=== PATIENT | male | born 1985 | race Caucasian/White ===

== ENCOUNTER 2018-11-08 11:05 | Emergency (ER) | payer SELFPAY ==
[2018-11-08] MEDS ORDERED: IBUPROFEN 800 MG TABLET PO ONE (11:28)
--- NOTE | 2018-11-08 11:28 | ER Document Report ---
ED Medical Screen (RME) - General Chief Complaint: General Weakness Stated Complaint: WEAKNESS Time Seen by Provider: 11/08/18 11:20 Mode of Arrival: Ambulatory Notes: This 33-year-old male presents to the emergency department with complaints he is been out of it for the past 4 to 5 days. Reports his urine is dark. Reports history of right upper quad abdominal pain right lower quad abdominal pain. Reports his muscles are sore as his lymph nodes are swollen. Reports he had diarrhea yesterday twice. Reports he quit taking kratom 2 days ago. He was taking that because he had anxiety and history of opiate abuse. 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 Reports he was take care of kids with [id number]-[id number]-scb-mouth disease. Patient did not have any abdominal pain with palpation. Patient reports he has been drinking fluids but his mouth looks dry. Denies chest pain denies shortness of breath. I have greeted and performed a rapid initial assessment of this patient. A comprehensive ED assessment and evaluation of the patient, analysis of test results and completion of the medical decision making process will be conducted by additional ED providers. Dictation of this chart was performed using voice recognition software; therefore, there may be some unintended grammatical errors. TRAVEL OUTSIDE OF THE [place] IN LAST 30 DAYS: No - Related Data Allergies/Adverse Reactions: No Known Allergies Allergy (Verified 11/08/18 11:06) Past Medical History Renal/ Medical History: Reports: Hx Kidney Stones Past Surgical History: Reports: Hx Kidney (Renal Surgery) - Immunizations Hx Diphtheria, Pertussis, Tetanus Vaccination: Yes Physical Exam - Vital signs Vitals: Temp Pulse Resp BP Pulse Ox 98.6 F 137 H 18 130/95 H 99 11/08/18 11:09 11/08/18 11:09 11/08/18 11:09 11/08/18 11:09 11/08/18 11:09 Course - Vital Signs Vital signs: Temp Pulse Resp BP Pulse Ox 98.6 F 137 H 18 130/95 H 99 11/08/18 11:09 11/08/18 11:09 11/08/18 11:09 11/08/18 11:09 11/08/18 11:09
[2018-11-08 11:49] LABS: ABSOLUTE EOSINOPHILS # (AUTO) 0.1 10^3/uL (0.0-0.6); ABSOLUTE LYMPHOCYTES (AUTO) 2.2 10^3/uL (0.5-4.7); ABSOLUTE MONOCYTES (AUTO) 0.7 10^3/uL (0.1-1.4); ABSOLUTE NEUT (AUTO) 5.1 10^3/uL (1.7-8.2); APPEARANCE,URINE SLIGHTLY-CLOUDY; BASOPHILS % (AUTO) 0.5 % (0-2); BILIRUBIN,URINE NEGATIVE (NEGATIVE); COLOR,URINE STRAW; EOSINOPHILS % (AUTO) 1.3 % (0-6); GLUCOSE, URINE NEGATIVE (NEGATIVE); HEMATOCRIT 41.4 % (37.9-51.0); HEMOGLOBIN 14.6 g/dL (13.5-17.0); KETONES,URINE NEGATIVE (NEGATIVE); LEUKOCYTE ESTERASE,URINE NEGATIVE (NEGATIVE); LYMPHOCYTES % (AUTO) 26.6 % (13-45); MEAN CORPUSCULAR HEMOGLOBIN 31.8 pg (27.0-33.4); MEAN CORPUSCULAR HGB CONC 35.2 g/dL (32.0-36.0); MEAN CORPUSCULAR VOLUME 90 fl (80-97); NITRITE,URINE NEGATIVE (NEGATIVE); PLATELET COUNT 213 10^3/uL (150-450); PROTEIN,URINE NEGATIVE (NEGATIVE); RED BLOOD COUNT 4.58 10^6/uL (4.35-5.55); RED CELL DISTRIBUTION WIDTH 12.9 % (11.5-14.0); SEGMENTED NEUTROPHILS % (AUTO) 62.6 % (42-78); TOTAL CELLS COUNTED % (AUTO) 100 %; URINE SPECIFIC GRAVITY 1.002; UROBILINOGEN,URINE NEGATIVE mg/dL (<2.0); WHITE BLOOD COUNT 8.2 10^3/uL (4.0-10.5)
[2018-11-08 12:10] LABS: ALBUMIN 5.1 g/dL (3.5-5.0); ALKALINE PHOSPHATASE 89 U/L (38-126); ANION GAP 11 (5-19); ASPARTATE AMINO TRANSFERASE 17 U/L (17-59); BILIRUBIN,DIRECT 0.2 mg/dL (0.0-0.4); BILIRUBIN,TOTAL 0.5 mg/dL (0.2-1.3); BLOOD UREA NITROGEN 6 mg/dL (7-20); CALCIUM 10.4 mg/dL (8.4-10.2); CARBON DIOXIDE 30 mmol/L (22-30); CHLORIDE 100 mmol/L (98-107); GLUCOSE 105 mg/dL (75-110); POTASSIUM 4.1 mmol/L (3.6-5.0); TOTAL PROTEIN 8.4 g/dL (6.3-8.2)
[2018-11-08 12:19] LABS: URINE AMPHETAMINES SCREEN NEGATIVE; URINE BARBITURATES SCREEN NEGATIVE; URINE BENZODIAZEPINES SCREEN NEGATIVE; URINE COCAINE SCREEN NEGATIVE; URINE MARIJUANA (THC) SCREEN NEGATIVE; URINE METHADONE SCREEN NEGATIVE; URINE PHENCYCLIDINE SCREEN NEGATIVE
--- NOTE | 2018-11-08 14:46 | ER Document Report ---
ED General - General Chief Complaint: General Weakness Stated Complaint: WEAKNESS Time Seen by Provider: 11/08/18 11:20 Mode of Arrival: Ambulatory Notes: Overall healthy 33-year-old male presents to the emergency department with chief complaint of general malaise, body aches, and concern that he may have liver injury secondary to kratom use. Patient states that he has significant social anxiety, avoidant personality disorder, and PTSD secondary to his time and states that his anxiety is playing a big part and how he is feeling. His father is a nurse practitioner and recommended that he get seen in the emergency department to ensure everything is okay. He denies any fevers or recent illness, denies headaches, denies any vision changes, denies dizziness/lightheadedness/weakness, denies any acute shortness of breath or chest pain, denies any nausea/vomiting/diarrhea/constipation. He states that he was having some right upper quadrant discomfort described as pinpricks that has been going on for the past week and. Patient has no other complaints. TRAVEL OUTSIDE OF THE [place] IN LAST 30 DAYS: No - Related Data Allergies/Adverse Reactions: No Known Allergies Allergy (Verified 11/08/18 11:06) Past Medical History - Social History Smoking Status: Current Every Day Smoker Chew tobacco use (# tins/day): No Frequency of alcohol use: None Drug Abuse: None Family History: Reviewed & Not Pertinent Patient has suicidal ideation: No Patient has homicidal ideation: No Renal/ Medical History: Reports: Hx Kidney Stones. Denies: Hx Peritoneal Dialysis Psychiatric Medical History: Reports: Hx Depression - anxiety Past Surgical History: Reports: Hx Kidney (Renal Surgery) - Immunizations Hx Diphtheria, Pertussis, Tetanus Vaccination: Yes Review of Systems - Review of Systems Constitutional: See HPI EENT: No symptoms reported Cardiovascular: See HPI Respiratory: See HPI Gastrointestinal: See HPI Genitourinary: No symptoms reported Male Genitourinary: No symptoms reported Musculoskeletal: See HPI Skin: No symptoms reported Hematologic/Lymphatic: No symptoms reported Neurological/Psychological: See HPI Physical Exam - Vital signs Vitals: Temp Pulse Resp BP Pulse Ox 98.6 F 137 H 18 130/95 H 99 11/08/18 11:09 11/08/18 11:09 11/08/18 11:09 11/08/18 11:11/08/18 11:09 - Notes Notes: PHYSICAL EXAMINATION: Reviewed vital signs and charting by RN GENERAL: Alert, interacts well. No acute distress. HEAD: Normocephalic, atraumatic. EYES: Pupils equal and round. Extraocular movements intact. ENT: Oral mucosa moist, tongue midline. NECK: Full range of motion. Trachea midline. LUNGS: Clear to auscultation bilaterally, no wheezes, rales, or rhonchi. No respiratory distress. HEART: Regular rate and rhythm. No murmur ABDOMEN: soft, non-tender. No distention. Bowel sounds present EXTREMITIES: Moves all 4 extremities spontaneously. No edema, No cyanosis. PSYCH: Normal affect with poor eye contact, normal mood. SKIN: Warm, dry, normal turgor. No rashes or lesions noted. Course - Re-evaluation Re-evalutation: 11/08/18 14:45 Patient is overall well-appearing and nontoxic. Patient states anxiety is playing a large role in how he is feeling and all of his lab work was within normal limits. He states that "it feels like 1000 pounds was lifted off my shoulders" knowing that he had no abnormalities in liver biochemical testing or any electrolyte abnormalities. Patient feels relief and is tolerating p.o. without any problems at all. I asked him if he had any right upper quadrant pain related to eating and he said he did not and at this point through shared decision making a right upper quadrant ultrasound is deferred. Patient does not have a primary doctor yet but is in the process of establishing care with the [facility] and sees dad is a nurse practitioner who he consults with for primary care issues. Patient is stable for discharge. - Vital Signs Vital signs: Temp Pulse Resp BP Pulse Ox 98.6 F 137 H 18 130/95 H 99 11/08/18 11:09 11/08/18 11:09 11/08/18 11:09 11/08/18 11:09 11/08/18 11:09 - Laboratory Result Diagrams: 11/08/18 11:33 11/08/18 11:33 Laboratory results interpreted by me: 11/08/18 11:33 BUN 6 L Calcium 10.4 H Total Protein 8.4 H Albumin 5.1 H Discharge - Discharge Clinical Impression: Malaise and fatigue, Body aches, Abdominal discomfort in right upper quadrant Condition: Good Disposition: HOME, SELF-CARE Additional Instructions: You were seen in the emergency department this afternoon for body aches, general malaise, and some right upper quadrant and right-sided abdominal discomfort. All of your lab work was very reassuring and all within normal limits. Your urinalysis show that you are very well-hydrated. Please continue to stay hydrated drinking water. As you stated anxiety the most likely played a part in how you are feeling. This is all very reassuring and I help this puts her mind at ease. If you have worsening abdominal pain, severe intractable nausea or vomiting, blood in your vomit or bloody diarrhea, acute weakness in one or more of your extremities, severe acute shortness of breath, or you have any other concerning symptoms please immediately return to the emergency department.
[2018-11-08 15:15] VITALS: BP 114/75
== END 2018-11-08 15:15 | disposition home or self-care (01) ==
LOC: ER 11:05
DX: M79.10 Myalgia, unspecified site (principal); R53.81 Other malaise; R10.11 Right upper quadrant pain; R53.1 Weakness; F17.200 Nicotine dependence, unspecified, uncomplicated; Z87.442 Personal history of urinary calculi
CPT/HCPCS: 36415; 80053; 80307; 81001; 85025; 99283